=== PATIENT | male | born 1995 | race Caucasian/White ===

== ENCOUNTER → 2018-10-22 | Outpatient (CLI) | payer OTHER, SELFPAY ==
--- NOTE | 2018-10-22 13:31 | REP ---
Thoracic spine five views: Vertebral body heights, interspacing alignment are normal. There are no compression deformities. There is no listhesis. The pedicles are unremarkable. Impression: Negative thoracic spine. Electronically Signed by Benigno Zhang MD 10/22/2018 01:22 P
--- NOTE | 2018-10-22 13:33 | REP ---
Lumbar spine six views: There are no comparisons. Vertebral body heights, interspacing alignment are normal. There is no spondylolysis. There is no spondylolisthesis. The pedicles and facets are unremarkable. The sacroiliac articulations are unremarkable. Impression: Negative lumbar spine. Electronically Signed by Benigno Zhang MD 10/22/2018 01:23 P
== END ==
LOC: M LRY 12:41
PROVIDERS: ATTEND Physician Assistant
DX: S39.92XA Unspecified injury of lower back, initial encounter (principal); S29.9XXA Unspecified injury of thorax, initial encounter; X58.XXXA Exposure to other specified factors, initial encounter; Y92.89 Other specified places as the place of occurrence of the external cause
CPT/HCPCS: 72072; 72110; 96372; G0463; J1885